=== PATIENT | male | born 1990 | race African-American/Black ===

== ENCOUNTER 2020-05-12 06:11 | Inpatient (IN) | payer MEDICAID ==
[~2020-05-12] VITALS: Ht 188 cm; Wt 118.8 kg
[2020-05-12] MEDS ORDERED: KETOROLAC 30MG/ML VIAL IV STA (06:24)
[2020-05-12 06:55] LABS: CHLORIDE 103 mEq/L (98-107)
[2020-05-12 06:57] LABS: INR 1.1; PROTHROMBIN TIME 11.4 sec (9.6-11.0)
[2020-05-12 07:03] LABS: CREATINE KINASE 74 IU/L (39-308)
[2020-05-12 07:38] LABS: BASOPHILS % 0.8 % (0.0-2.0); EOSINOPHILS % 0.2 % (0.0-5.0); HEMATOCRIT. 43.6 % (42.0-52.0); HEMOGLOBIN. 14.6 g/dL (14.0-18.0); LYMPHOCYTES % 9.1 % (20.0-50.0); MEAN CORPUSCULAR HEMOGLOBIN 32.2 pg (28.0-32.0); MEAN CORPUSCULAR VOLUME 95.7 fL (80.0-94.0); MEAN PLATELET VOLUME 8.7 fl (7.4-10.4); MONOCYTES % 8.4 % (2.0-8.0); NEUTROPHILS % 81.5 % (40.0-76.0); PLATELET 255 x1000/uL (130-400); RED BLOOD CELL COUNT 4.55 mill/uL (4.7-6.1); RED CELL DISTRIBUTION WIDTH 14.8 % (11.6-14.6)
[2020-05-12 09:14] LABS: CLARITY URINE CLEAR (CLEAR); COLOR URINE DARK YELLOW (YELLOW); KETONES URINE 1+ (NEGATIVE); LEUKOCYTE ESTERASE URINE TRACE (NEGATIVE); NITRITE URINE NEGATIVE (NEGATIVE); OCCULT BLOOD URINE 2+ (NEGATIVE); PROTEIN URINE 1+ (NEGATIVE); SPECIFIC GRAVITY URINE 1.023 (1.005-1.030)
[2020-05-12] MEDS ORDERED: ACETAMINOPHEN 325MG TABLET PO PRN ×2 (10:00)
[2020-05-12] MEDS ORDERED: GUAIFENESIN 200MG/10ML SUGAR FREE UDC PO PRN (10:00)
[2020-05-12] MEDS ORDERED: NITROGLYCERIN 0.4MG TABLET SL SL PRN (10:00)
[2020-05-12] MEDS ORDERED: PIPERACILLIN/TAZ 3.375G PREMIX 50 ML IV SCH (10:00)
[2020-05-12] MEDS ORDERED: DOCUSATE SODIUM 100MG CAPSULE PO PRN (10:00)
[2020-05-12] MEDS ORDERED: MAGNESIUM/ALUMINUM HYDROXIDE/SIMETHICONE 30ML UDC PO PRN (10:00)
[2020-05-12] MEDS ORDERED: ENOXAPARIN 40MG/0.4ML SYR SUBCUT SCH (10:00)
[2020-05-12] MEDS ORDERED: ONDANSETRON HCL 4MG/2ML INJ IV PRN (10:00)
[2020-05-12 10:15] VITALS: BP 161/108
[2020-05-12 10:20] LABS: ETHANOL BLOOD < 10 mg/dL
[2020-05-12 10:23] LABS: LDL CHOLESTEROL 83 mg/dL (5-100); TOTAL IRON BINDING CAPACITY 343 ug/dL (250-450)
[2020-05-12 10:24] LABS: HDL CHOLESTEROL 72 mg/dL (40-59)
[2020-05-12] MEDS ORDERED: VANCOMYCIN 2,000 MG in DEXT 5% WATER 500 ML IV NR (10:30)
[2020-05-12 10:46] LABS: FOLIC ACID (FOLATE) SERUM 5.1 ng/mL (>5.38)
[2020-05-12 12:00] VITALS: BP 142/90
[2020-05-12] MEDS: AMLODIPINE 10MG TABLET PO SCH (12:00)
[2020-05-12] MEDS: ENOXAPARIN 30MG/0.3ML SYR SUBCUT SCH ×2 (12:01→20:49)
[2020-05-12] MEDS ORDERED: PIPERACILLIN/TAZOBACTAM 3.375 G in DEXT 5% WATER 100 ML IV SCH (13:00)
[2020-05-12 16:00] VITALS: BP 151/105
[2020-05-12] MEDS ORDERED: FOLIC ACID 1 MG in SODIUM CHLORIDE 0.9% 500 ML IV NR (16:00)
[2020-05-12] MEDS: PIPERACILLIN/TAZOBACTAM 3.375 G in DEXT 5% WATER 100 ML IV SCH ×2 (16:38→22:37)
[2020-05-12] MEDS ORDERED: VANCOMYCIN 1 G PREMIX 200 ML IV SCH (18:00)
[2020-05-12] MEDS: CLONIDINE 0.1MG TABLET PO PRN (18:32)
[2020-05-12] MEDS: KETOROLAC 15MG/ML VIAL IV PRN (18:34)
[2020-05-12 20:00] VITALS: BP 148/85
[2020-05-12] MEDS ORDERED: POTASSIUM CHLORIDE 20MEQ TABLET SR PO NR (20:00)
[2020-05-12] MEDS: FAMOTIDINE 20MG TABLET PO SCH (20:48)
[2020-05-12] MEDS: ASCORBIC ACID 500 MG TABLET PO SCH (20:48)
[2020-05-12] MEDS ORDERED: ZOLPIDEM TARTRATE 5MG TABLET PO PRN (21:00)
[2020-05-12] MEDS: VANCOMYCIN 1 G PREMIX 200 ML IV SCH (22:37)
[2020-05-13] VITALS: BP 135/86
[2020-05-13] MEDS: PIPERACILLIN/TAZOBACTAM 3.375 G in DEXT 5% WATER 100 ML IV SCH ×4 (03:47→21:56)
[2020-05-13 04:00] VITALS: BP 140/88
[2020-05-13] MEDS: VANCOMYCIN 1 G PREMIX 200 ML IV SCH ×3 (05:22→22:47)
[2020-05-13 07:21] LABS: BASOPHILS % 0.6 % (0.0-2.0); HEMATOCRIT. 40.6 % (42.0-52.0); HEMOGLOBIN. 13.7 g/dL (14.0-18.0); LYMPHOCYTES % 16.4 % (20.0-50.0); MEAN CORPUSCULAR HEMOGLOBIN 32.6 pg (28.0-32.0); MEAN CORPUSCULAR VOLUME 96.7 fL (80.0-94.0); MEAN PLATELET VOLUME 9.5 fl (7.4-10.4); MONOCYTES % 9.2 % (2.0-8.0); NEUTROPHILS % 72.8 % (40.0-76.0); PLATELET 245 x1000/uL (130-400); RED BLOOD CELL COUNT 4.19 mill/uL (4.7-6.1); RED CELL DISTRIBUTION WIDTH 14.6 % (11.6-14.6)
[2020-05-13 07:48] LABS: CHLORIDE 104 mEq/L (98-107)
[2020-05-13 08:00] VITALS: BP 144/86
[2020-05-13 08:00] LABS: PHOSPHORUS 3.6 mg/dL (2.5-4.9)
[2020-05-13] MEDS: ZINC SULFATE 220 MG ( 50 ) CAPSULE PO SCH (09:00)
[2020-05-13] MEDS: FAMOTIDINE 20MG TABLET PO SCH ×2 (09:25→21:57)
[2020-05-13] MEDS: FOLIC ACID 1MG TABLET PO SCH (09:25)
[2020-05-13] MEDS: CHOLECALCIFEROL (D3) 1000 UNIT TABLET PO SCH (09:25)
[2020-05-13] MEDS: ENOXAPARIN 30MG/0.3ML SYR SUBCUT SCH ×2 (09:25→21:57)
[2020-05-13] MEDS: ASCORBIC ACID 500 MG TABLET PO SCH ×2 (09:25→21:57)
[2020-05-13] MEDS: AMLODIPINE 10MG TABLET PO SCH (09:25)
[2020-05-13] MEDS: KETOROLAC 15MG/ML VIAL IV PRN (09:36)
[2020-05-13 12:00] VITALS: BP 138/88
[2020-05-13 16:00] VITALS: BP 140/92
[2020-05-13] MEDS: CLONIDINE 0.1MG TABLET PO PRN (16:59)
[2020-05-13 20:00] VITALS: BP 141/78
[2020-05-14] VITALS: BP 117/69
[2020-05-14] MEDS: KETOROLAC 15MG/ML VIAL IV PRN (03:13)
[2020-05-14] MEDS: PIPERACILLIN/TAZOBACTAM 3.375 G in DEXT 5% WATER 100 ML IV SCH ×2 (03:51→09:35)
[2020-05-14 04:00] VITALS: BP 130/82
[2020-05-14] MEDS: VANCOMYCIN 1 G PREMIX 200 ML IV SCH (05:23)
[2020-05-14 05:55] LABS: CHLORIDE 104 mEq/L (98-107)
[2020-05-14 08:00] VITALS: BP 140/94
[2020-05-14] MEDS: AMLODIPINE 10MG TABLET PO SCH (09:35)
[2020-05-14] MEDS: CHOLECALCIFEROL (D3) 1000 UNIT TABLET PO SCH (09:35)
[2020-05-14] MEDS: FOLIC ACID 1MG TABLET PO SCH (09:35)
[2020-05-14] MEDS: ASCORBIC ACID 500 MG TABLET PO SCH (09:35)
[2020-05-14] MEDS: ZINC SULFATE 220 MG ( 50 ) CAPSULE PO SCH (09:35)
[2020-05-14] MEDS: FAMOTIDINE 20MG TABLET PO SCH (09:35)
[2020-05-14] MEDS: ENOXAPARIN 30MG/0.3ML SYR SUBCUT SCH (09:37)
[2020-05-14 10:04] VITALS: BP 140/94
== END 2020-05-14 10:42 | disposition home or self-care (01) | DRG 720 ==
LOC: ER 06:11 → 6EST 08:23 → EDBEDREQ 08:25 → ENRESERV 09:16
PROVIDERS: ADMIT Internal Medicine; ATTEND Internal Medicine
DX: A41.9 Sepsis, unspecified organism (principal); D53.9 Nutritional anemia, unspecified; E53.8 Deficiency of other specified B group vitamins; E66.9 Obesity, unspecified; E87.6 Hypokalemia; I10 Essential (primary) hypertension; R74.01 Elevation of levels of liver transaminase levels; L03.115 Cellulitis of right lower limb; Z82.49 Family history of ischemic heart disease and other diseases of the circulatory system; Z91.19 Patient's noncompliance with other medical treatment and regimen; Z68.33 Body mass index [BMI] 33.0-33.9, adult; Z71.3 Dietary counseling and surveillance
CPT/HCPCS: 36415; 71045; 73562; 73590; 73630; 80048; 80053; 80061; 80202; 80320; 81003; 82550; 82607; 82746; 83036; 83540; 83550; 83605; 83735; 83880; 84100; 84145; 84484; 84550; 85025; 85651; 86140; 93005; 93971; 99285; C1893; J1650; J1885; J2543; J3370; J3490; J7040; J7060; G0480

== ENCOUNTER 2024-12-19 11:02 | Emergency (ER) | payer MEDICAID ==
[~2024-12-19] VITALS: Ht 188 cm; Wt 118.0 kg
[~2024-12-19 11:02] MED LIST: ALLO100T PO; AMLO5TAB88 PO; CEL200 PO; CYAN-50 PO; FOLI-43 PO; HYDR200T80 MT; KEPPSOL PO; POTA-204 PO; PRED10TA PO
[2024-12-19 11:04] VITALS: O2SAT 98
[2024-12-19 11:45] LABS: BASOPHILS % 0.8 % (0.0-2.0); EOSINOPHILS % 2.7 % (0.0-5.0); HEMATOCRIT. 42.6 % (42.0-52.0); HEMOGLOBIN. 14.3 g/dL (14.0-18.0); LYMPHOCYTES % 14.5 % (20.0-50.0); MEAN PLATELET VOLUME 9.7 fl (7.4-10.4); MONOCYTES % 6.8 % (2.0-8.0); NEUTROPHILS % 75.2 % (40.0-76.0); PLATELET 213 x1000/uL (130-400); RED BLOOD CELL COUNT 4.74 mill/uL (4.7-6.1); RED CELL DISTRIBUTION WIDTH 14.9 % (11.6-14.6)
[2024-12-19] MEDS: ACETAMINOPHEN 500MG TABLET PO ONE (11:55)
[2024-12-19] MEDS: KETOROLAC 15MG/ML VIAL IV ONE (11:55)
[2024-12-19] MEDS: SODIUM CHLORIDE 0.9% 1,000 ML IV ONE (11:55)
[2024-12-19 12:04] LABS: UREA NITROGEN BLOOD 9 mg/dL (9-23)
[2024-12-19 12:13] LABS: CREATININE 1.4 mg/dL (0.6-1.3)
[2024-12-19] MEDS ORDERED: COLC0.6C3 MT (13:53)
[2024-12-19] MEDS ORDERED: HYDR-4001 MT (13:53)
[2024-12-19] MEDS ORDERED: P50 MT (13:53)
[2024-12-19] MEDS ORDERED: IBUP-1525 MT (13:53)
[2024-12-19 14:10] VITALS: BP 151/92; PULSE 102; RESP 17; TEMP 37.1; O2SAT 97
[2024-12-19 14:21] LABS: *AMPHETAMINES SCREEN URINE NEGATIVE (NEGATIVE); *BARBITURATES SCREEN URINE NEGATIVE (NEGATIVE); *BENZODIAZEPINES SCREEN URINE NEGATIVE (NEGATIVE); *COCAINE SCREEN URINE NEGATIVE (NEGATIVE); CANNABINOID URINE SCREEN NEGATIVE (NEGATIVE); ECSTASY MDMA SCREEN URINE NEGATIVE (NEGATIVE); METHADONE URINE SCREEN NEGATIVE (NEGATIVE); OPIATES URINE SCREEN NEGATIVE (NEGATIVE); PHENCYCLIDINE URINE SCREEN NEGATIVE (NEGATIVE)
== END 2024-12-19 14:38 | disposition home or self-care (01) ==
LOC: ER 11:38
DX: M10.9 Gout, unspecified (principal); Z79.899 Other long term (current) drug therapy
CPT/HCPCS: 80305; 80048; 85025; 36415; 93005; 96361; 96374; 99285; J1885; J7030; Z7610; A4606